=== PATIENT | female | born 1970 | race African-American/Black ===

== ENCOUNTER 2016-08-21 07:55 | Inpatient (IN) | payer OTHER ==
[2016-08-20 14:05] VITALS: BMI 30.3
[~2016-08-21] VITALS: Ht 165.1 cm; Wt 79.0 kg
[2016-08-21] VITALS (23 sets, daily range): BP systolic 109–139; BP diastolic 64–88; PULSE 0–94; RESP 12–54; Ht 165.1 cm; Wt 79.0 kg
[2016-08-21] MEDS ORDERED: CEFAZOLIN 1 GM/50 ML (PMX) 50 ML IVPB ONE (08:30)
[2016-08-21] MEDS ORDERED: SOD CHLORIDE 0.9% 1,000 ML IV SCH (08:30)
[2016-08-21] MEDS ORDERED: THROMBIN 5000 UNIT VIAL ONE (09:47)
[2016-08-21] MEDS ORDERED: HYDROmorphONE 2 MG/ML SYG ONE (10:49)
[2016-08-21] MEDS ORDERED: MIDAZOLAM 1 MG/ML 2 ML INJ ONE (10:49)
[2016-08-21] MEDS ORDERED: ROCURONIUM 50 MG INJ ONE (10:49)
[2016-08-21] MEDS ORDERED: METOCLOPRAMIDE 10 MG INJ ONE (10:49)
[2016-08-21] MEDS ORDERED: PROPOFOL 20 ML ONE (10:49)
[2016-08-21] MEDS ORDERED: CEFAZOLIN 1 GM INJ ONE (10:50)
[2016-08-21] MEDS ORDERED: DEXAMETHASONE 4 MG/ML 1 ML INJ ONE (11:29)
[2016-08-21] MEDS ORDERED: NEOSTIGMINE 3 MG/3 ML SYRINGE ONE (12:10)
[2016-08-21] MEDS ORDERED: GLYCOPYRROLATE 0.4 MG INJ ONE (12:10)
[2016-08-21] MEDS ORDERED: ONDANSETRON 4 MG INJ IV PRN ×2 (12:30→13:00)
[2016-08-21] MEDS ORDERED: HYDROmorphONE (0.2 MG/ML) 10ML SYG IV PRN ×3 (13:00)
[2016-08-21] MEDS ORDERED: DIPHENHYDRAMINE 50 MG INJ IV PRN (13:00)
[2016-08-21] MEDS ORDERED: MIDAZOLAM 1 MG/ML 2 ML INJ IV PRN (13:00)
[2016-08-21] MEDS ORDERED: OXYCODONE/ACETAMINOPHEN (5/325) TAB PO PRN ×2 (13:00)
[2016-08-21] MEDS ORDERED: MEPERIDINE 25 MG INJ IV PRN (13:00)
[2016-08-21] MEDS ORDERED: METOCLOPRAMIDE 10 MG INJ IV PRN (13:00)
--- NOTE | 2016-08-21 13:05 | OPR ---
DATE OF OPERATION: 08/21/2016 PREOPERATIVE DIAGNOSIS: Left thyroid enlargement, rule out intrathyroidal left parathyroid adenoma. POSTOPERATIVE DIAGNOSIS: Left thyroid enlargement, rule out intrathyroidal left parathyroid adenoma . OPERATION PERFORMED: Left thyroid lobectomy. ANESTHESIA: General. ANESTHESIOLOGIST: Dr. Momin SURGEON: Arturo Christine MD PUBLIC HEALTH NUTRITIONIST: Faustino Ford MD INDICATIONS FOR PROCEDURE: The patient is a 46-year-old female who presented with a left thyroid ma ss and an elevated parathormone level of 191. She was seen by attending ict business analyst, Dr. Dieudonne lombardi, and although the scan indicated probable intrathyroidal parathyroid adenoma, a neoplasm could als o not be ruled out. Therefore, the recommendation from Dr. Bro was for left thyroid lobectomy. The patient consented and was scheduled for surgery. DESCRIPTION OF PROCEDURE: The patient was brought to the operating theater, placed under general en dotracheal tube anesthesia. The abdomen and neck were placed in the extended position and the neck was prepped and draped in the usual sterile fashion. A planned incision was made approximately 2 cm above the clavicle and extending approximately 4 cm on either side of midline. Subcutaneous tissue was dissected with cautery down through the platysmal muscle. Subplatysmal flaps were developed fi rst superiorly using cautery and some blunt dissection and then inferiorly. The median raphe was in cised longitudinally. The strap muscles were meticulously dissected off of enlarged left thyroid lo be. The lobe was mobilized and brought towards midline. The inferior pole was sequentially isolate d and then transected with the LigaSure device as was the superior pole. There was no definite evid ence of an extracellular thyroidal adenoma. What appeared to be the left lower pole parathyroid gla nd was identified and did not appear to look particularly abnormal. At this point, with the entire left lobe mobilized, the ligament of Watson was transected with the LigaSure device. Specimen was or iented and sent for permanent pathologic analysis. The wound was irrigated. There was no evidence of bleeding. Dr. Christine made the decision not to place a drain. The median raphe was then reapproxi mated with multiple 4-0 Vicryl sutures in interrupted fashion. The platysmas muscle was also reappr oximated with multiple 4-0 sutures in interrupted fashion bilaterally and the final skin approximati on took place with 4-0 Monocryl sutures in subcuticular fashion and Dermabond was applied. The richard ent tolerated procedure well. Estimated blood loss was 20 mL. There were no complications and the patient was transported in stable condition to the recovery room. Dictated By: ARTURO DHILLON/LEE Conf#: [id number] DID#: [id number]
[2016-08-21] MEDS: D5W-0.45 NACL + KCL 20 MEQ 1,000 ML IV SCH ×3 (15:21→23:33)
[2016-08-21] MEDS: HYDROmorphONE 1 MG/ML SYG IV PRN ×4 (15:25→23:27)
[2016-08-21] MEDS: PANTOPRAZOLE 40 MG INJ IV SCH (17:41)
--- NOTE | 2016-08-21 18:31 | HP ---
DATE OF ADMISSION: 08/21/2016 CHIEF COMPLAINT AND HISTORY OF PRESENT ILLNESS: The patient is a 46-year-old female who is being se en by Dr. Elias as an outpatient. The patient is being seen by Dr. Elias for left parathyroid a denoma within the left lobe of thyroid. Rule out malignancy. The patient was brought into hospital and underwent left thyroid lobectomy. Patient did have postoperative pain and is being admitted fo r further evaluation and management. The patient denied any chest pain or shortness of breath. No reported fever or chills. No recent headache, dizziness, syncope. No history of dysuria or hematur ia. No history of vomiting or diarrhea. Patient has significant vitiligo lesions. The rest of the review of systems is unremarkable. PAST SURGICAL HISTORY: Patient is status post hysterectomy. ALLERGIES: PATIENT IS ALLERGIC TO NORCO AND VICODIN, BUT PATIENT STATES THAT SHE CAN TAKE PERCOCET. FAMILY HISTORY: The patient's maternal uncle of lung cancer. He was a nonsmoker. SOCIAL HISTORY: No smoking, no alcohol. PHYSICAL EXAMINATION: GENERAL: The patient is conscious, awake, alert. VITAL SIGNS: Temperature 97.6, pulse 92, respiration 18, blood pressure 129/64, O2 saturation 97% o n 2 liters nasal cannula. HEENT: Atraumatic, normocephalic. Conjunctivae and lids normal. Nose and ears normal. Oropharynx examination was deferred due to recent surgery. NECK: No active bleeding, ecchymosis or swelling. CHEST: Fairly clear. CARDIOVASCULAR: S1, S2 normal. No murmur. ABDOMEN: Soft, nondistended, nontender. Bowel sounds present. EXTREMITIES: No leg edema. NEUROLOGIC: The patient is awake, alert, fairly oriented with no gross focal deficit. LABORATORY DATA: Sodium 140, potassium 4.4, BUN 10, creatinine 0.7, glucose 93, calcium 10.1, intac t parathyroid hormone was 191 prior to surgery. Coagulation profile normal. WBC 5.3, hemoglobin 13 .2, platelets 307. IMPRESSION: 1. Left parathyroid adenoma within the left lobe. Rule out malignancy. Status post left thyroid lo bectomy. 2. Vitiligo. PLAN: The patient admitted on medical floor. Patient was started on clear liquid diet, which will be advanced as tolerated. Patient will be given IV fluid, IV Dilaudid and p.o. Percocet for pain co ntrol. We will use sequential compression devices for deep venous thrombosis prophylaxis. We will monitor electrolytes including calcium. Further recommendations will depend on the patient's hospit al course. Dictated By: LATASHA CHINO/LEE Conf#: [id number] DID#: [id number]
[2016-08-22 01:00] VITALS: BP 109/79; PULSE 78; RESP 18
[2016-08-22] MEDS: HYDROmorphONE 1 MG/ML SYG IV PRN ×3 (02:29→08:33)
[2016-08-22 05:00] VITALS: BP 118/80; PULSE 88; RESP 18
[2016-08-22 05:55] LABS: ADD SCAN DIFF NO
[2016-08-22 06:04] LABS: BASOPHILS % 0.1 % (0.0-2.0); HEMATOCRIT 35.3 % (37.0-47.0); HEMOGLOBIN 11.7 g/dl (12.0-16.0); LYMPHOCYTES # 1.2 10^3/ul (0.8-2.9); LYMPHOCYTES % 8.4 % (15.0-51.0); MEAN CORPUSCULAR HGB CONC 33.1 g/dl (32.0-37.0); MEAN CORPUSCULAR VOLUME 81.5 fl (82.0-101.0); MEAN PLATELET VOLUME 10.9 fl (7.4-10.4); MONOCYTE # 1.3 10^3/ul (0.3-0.9); MONOCYTES % 9.1 % (0.0-11.0); NEUTROPHIL # 11.7 10^3/ul (1.6-7.5); PLATELET COUNT 281 10^3/UL (140-415); RED BLOOD COUNT 4.33 10^6/ul (4.20-5.40); RED CELL DISTRIBUTION WIDTH 16.3 % (11.5-14.5); WHITE BLOOD COUNT 14.3 10^3/ul (4.8-10.8)
[2016-08-22] MEDS: PANTOPRAZOLE 40 MG INJ IV SCH (06:11)
[2016-08-22 06:16] LABS: CALCIUM 9.4 mg/dl (8.4-10.2); CREATININE 0.67 mg/dl (0.44-1.00); POTASSIUM 4.2 mmol/L (3.5-5.1)
[2016-08-22 07:58] VITALS: BP 109/64; RESP 22
[2016-08-22] MEDS: D5W-0.45 NACL + KCL 20 MEQ 1,000 ML IV SCH ×2 (08:34→17:39)
--- NOTE | 2016-08-22 12:24 | PN ---
DATE: 08/22/2016 Postop day #1 status post left thyroid lobectomy. SUBJECTIVE: Complains of pain, has not had any food yet. She also states that she cannot sleep we ll. OBJECTIVE: VITAL SIGNS: Temperature 98.5, heart rate 82, respirations 22, blood pressure 109/64, saturation 98 % on room air. LABORATORIES: Calcium 9.3, then 9.6 title abstractor and then at 5:00 a.m. 9.4. Sodium, potassium nor mal. WBC 14,300 with 82% neutrophils, hemoglobin 11.7, hematocrit 35.3. Platelets 281. EXAMINATION: There is no swelling in the neck area. The wound looks clean. ASSESSMENT AND PLAN: 1. Status post left thyroid lobectomy for possible intrathyroidal parathyroid adenoma or any other malignancy. 2. Patient is relatively stable. Hemoglobin is stable. Calcium is stable. WBC has increased with shift to the left. Patient has not experienced swallowing yet. PLAN: We will start patient on clear liquids and advance to full liquids tonight. Repeat CBC and c alcium tomorrow morning. If everything is okay, we will discharge her tomorrow. Dictated By: LEE SHEPHERD MD PS/NTS Conf#: [id number] DID#: [id number]
[2016-08-22] MEDS ORDERED: HYDROmorphONE 1 MG/ML SYG IV PRN (13:30)
--- NOTE | 2016-08-22 17:20 | PN ---
Date/Time of Note Date/Time of Note DATE: 08/22/16 TIME: 17:17 Assessment/Plan VTE Prophylaxis VTE Prophylaxis Intervention: SCD's Lines/Catheters IV Catheter Type (from Nrs): Peripheral IV Assessment/Plan Assessment/Plan 1. Left parathyroid adenoma within the left lobe. Rule out malignancy. Status post left thyroid lobectomy. Advance diet per surgery. CBC tomorrow. 2. Vitiligo. Further recommendations based on clinical course. Plan of care discussed with Dr. Wells. Subjective 24 Hr Interval Summary Free Text/Dictation Patient's complains of postoperative pain, controlled with current medication, able to tolerate clear liquid diet well, a voice is intact however softer than patient usual voice. Exam/Review of Systems Vital Signs Vitals Vital Signs Date Time Temp Pulse Resp B/P Pulse Ox O2 Delivery O2 Flow Rate FiO2 08/22/16 07:58 98.5 82 22 109/64 98 08/22/16 05:00 Nasal Cannula 08/21/16 20:00 2.0 Intake and Output 08/21/16 08/21/16 08/22/16 15:00 23:00 07:00 Intake Total 250 ml 1500 ml Output Total 20 ml 400 ml 1200 ml Balance -20 ml -150 ml 300 ml Exam Constitutional: alert Psych: no complaints Head: normocephalic Eyes: nl conjunctiva ENMT: nl external ears & nose Neck: other (Base of the neck surgical incision is intact), supple Respiratory: clear to auscultation Cardiovascular: nl pulses, regular rate and rhythm Gastrointestinal: non-tender, soft Musculoskeletal: nl extremities to inspection Extremities: normal pulses Neurological: FIELD SCOUT II-XII intact Results Result Diagram: 08/22/16 0535 08/22/16 0535 Results 24 hrs Laboratory Tests Test 08/21/16 17:35 08/22/16 00:35 08/22/16 05:35 Calcium Level 9.3 9.6 9.4 White Blood Count 14.3 H Red Blood Count 4.33 Hemoglobin 11.7 L Hematocrit 35.3 L Mean Corpuscular Volume 81.5 L Mean Corpuscular Hemoglobin 27.0 L Mean Corpuscular Hemoglobin Concent 33.1 Red Cell Distribution Width 16.3 H Platelet Count 281 Mean Platelet Volume 10.9 H Neutrophils % 82.0 H Lymphocytes % 8.4 L Monocytes % 9.1 Eosinophils % 0.0 Basophils % 0.1 Nucleated Red Blood Cells % 0.0 Neutrophils # 11.7 H Lymphocytes # 1.2 Monocytes # 1.3 H Eosinophils # 0.0 Basophils # 0.0 Nucleated Red Blood Cells # 0.0 Sodium Level 136 Potassium Level 4.2 Chloride Level 106 Carbon Dioxide Level 25 Anion Gap 9 Blood Urea Nitrogen 8 Creatinine 0.67 Glucose Level 115 Medications Medications Current Medications Ondansetron HCl 4 mg 4 mg Q6H PRN IV NAUSEA AND/OR VOMITING; Start 08/21/16 at 12:30 Potassium Chloride/Dextrose/ Sod Cl (D5-1/2ns + KCl 20 Meq) 1,000 ml @ 125 mls/ hr Q8H IV Last administered on 08/22/16 08:34; Admin Dose 125 MLS/HR; Start at 12:22 Pantoprazole (Protonix Iv) 40 mg DAILY@06 IV Last administered on 08/22/16 06: 11; Admin Dose 40 MG; Start 08/21/16 at 17:30 Oxycodone/ Acetaminophen (Percocet (5/ 325)) 1 tab Q4H PRN PO PAIN; Start 08/22 at 12:00 Hydromorphone HCl (Dilaudid) 0.5 mg Q4H PRN IV PAIN Last administered on 13:35; Admin Dose 0.5 MG; Start 08/22/16 at 13:30 SUNI LIM Aug 22, 2016 17:20
[2016-08-22] MEDS: OXYCODONE/ACETAMINOPHEN (5/325) TAB PO PRN (18:47)
[2016-08-22 20:38] VITALS: BP 123/72; RESP 20
[2016-08-23] MEDS: D5W-0.45 NACL + KCL 20 MEQ 1,000 ML IV SCH ×3 (01:01→12:22)
[2016-08-23] MEDS: OXYCODONE/ACETAMINOPHEN (5/325) TAB PO PRN ×2 (01:02→06:23)
[2016-08-23 06:17] LABS: ADD SCAN DIFF NO
[2016-08-23] MEDS: PANTOPRAZOLE 40 MG INJ IV SCH (06:23)
[2016-08-23 06:40] LABS: BASOPHILS % 0.6 % (0.0-2.0); EOSINOPHILS # 0.1 10^3/ul (0.0-0.5); EOSINOPHILS % 1.4 % (0.0-7.0); HEMATOCRIT 33.2 % (37.0-47.0); HEMOGLOBIN 11.4 g/dl (12.0-16.0); LYMPHOCYTES # 2.1 10^3/ul (0.8-2.9); LYMPHOCYTES % 34.2 % (15.0-51.0); MEAN CORPUSCULAR HEMOGLOBIN 28.2 pg (29.0-33.0); MEAN CORPUSCULAR HGB CONC 34.3 g/dl (32.0-37.0); MEAN CORPUSCULAR VOLUME 82.2 fl (82.0-101.0); MEAN PLATELET VOLUME 11.1 fl (7.4-10.4); MONOCYTE # 0.7 10^3/ul (0.3-0.9); MONOCYTES % 11.9 % (0.0-11.0); NEUTROPHIL # 3.2 10^3/ul (1.6-7.5); NEUTROPHILS % 51.7 % (39.0-77.0); PLATELET COUNT 267 10^3/UL (140-415); RED BLOOD COUNT 4.04 10^6/ul (4.20-5.40); RED CELL DISTRIBUTION WIDTH 16.5 % (11.5-14.5); WHITE BLOOD COUNT 6.2 10^3/ul (4.8-10.8)
[2016-08-23 07:41] VITALS: BP 119/77; RESP 18
--- NOTE | 2016-08-23 10:44 | DS ---
Date/Time of Note Date/Time of Note DATE: 08/23/16 TIME: 10:43 Discharge Summary Admission/Discharge Info Admit Date/Time Aug 22, 2016 at 17:21 Discharge Date/Time 08/23/16 Final Diagnosis 1) left parathyroid adenoma Consults surgery Hospital Course Patient came in for surgical removal of left parathyroid adenoma. Patient underwent procedure and tolerated it well. Once stable per surgery, she was sent home. 1. Left parathyroid adenoma within the left lobe. Rule out malignancy. Status post left thyroid lobectomy. Advance diet per surgery. CBC tomorrow. 2. Vitiligo. Home Meds No Active Prescriptions or Reported Meds Pending Labs Laboratory Tests Test 08/23/16 05:55 White Blood Count 6.210^3/ul (4.8-10.8) Red Blood Count 4.0410^6/ul (4.20-5.40) Hemoglobin 11.4g/dl (12.0-16.0) Hematocrit 33.2% (37.0-47.0) Mean Corpuscular Volume 82.2fl (82.0-101.0) Mean Corpuscular Hemoglobin 28.2pg (29.0-33.0) Mean Corpuscular Hemoglobin Concent 34.3g/dl (32.0-37.0) Red Cell Distribution Width 16.5% (11.5-14.5) Platelet Count 05419^3/UL (140-415) Mean Platelet Volume 11.1fl (7.4-10.4) Neutrophils % 51.7% (39.0-77.0) Lymphocytes % 34.2% (15.0-51.0) Monocytes % 11.9% (0.0-11.0) Eosinophils % 1.4% (0.0-7.0) Basophils % 0.6% (0.0-2.0) Nucleated Red Blood Cells % 0.0/100WBC (0.0-0.0) Neutrophils # 3.210^3/ul (1.6-7.5) Lymphocytes # 2.110^3/ul (0.8-2.9) Monocytes # 0.710^3/ul (0.3-0.9) Eosinophils # 0.110^3/ul (0.0-0.5) Basophils # 0.010^3/ul (0.0-0.1) Nucleated Red Blood Cells # 0.010^3/ul (0.0-0.0) Calcium Level 9.4mg/dl (8.4-10.2) JOSE ALBERTO JONES Aug 23, 2016 10:44
--- NOTE | 2016-08-23 12:26 | PN ---
DATE: 08/23/2016 Status post left thyroid lobectomy, postop day #2. SUBJECTIVE: Feels much better. OBJECTIVE VITAL SIGNS: Temperature 98.0, pulse 70 heart rate, 18 respirations, blood pressure 119/77, saturat ion 96% on room air. LAB: Calcium 9.4 and stable. WBC dropped to 6.2, normal. Normal differential. Hemoglobin is stable at 9.4. The wound looks clean. The patient tolerated full liquid diet. Voice has improved and is much bett er. PLAN: The patient can be discharged home after lunch. Follow up by Dr. Renee in his office. Dictated By: LEE SHEPHERD MD PS/LEE Conf#: [id number] DID#: [id number]
== END 2016-08-23 16:55 | disposition home or self-care (01) | DRG 627 ==
LOC: SDS 07:55 → MS2 12:24 → SDS 12:24 → INTOOBSV 12:24 → MS2 14:15 → OBSVTOIN 08-22 17:21
PROVIDERS: ADMIT Internal Medicine; ATTEND Internal Medicine
PROC: 0GBG0ZZ Excision of Left Thyroid Gland Lobe, Open Approach (ICD-10-PCS; principal; 2016-08-21 10:30)
DX: D35.1 Benign neoplasm of parathyroid gland (principal); L80 Vitiligo
CPT/HCPCS: 80048; 82310; 85025; 88309; 99217; C9113; G0378; J0690; J1100; J1170; J2175; J2250; J2405; J2710; J2765; J3480

== ENCOUNTER → 2016-11-07 | Outpatient (CLI) | payer OTHER ==
--- NOTE | 2016-11-07 15:48 | RADRPT ---
PROCEDURE: Nuclear medicine parathyroid scan CLINICAL INDICATION: Hyperparathyroidism. Elevated PTH. History of previous left parathyroid adeno ma. Previous left thyroid lobectomy. TECHNIQUE: 20 mCi of technetium 99m sestamibi was administered to the patient. Planar imaging of the thyroid bed and neck region was performed in the anterior and oblique views. Imaging was obtain ed at 30 minutes, 2 hours, and 4 hours post injection. Images were reviewed on the high resolution PACS workstation. COMPARISON: None available FINDINGS: Normal physiologic activity is seen throughout the glands of the neck, as expected. Increased activi ty within the right lobe of the thyroid gland is seen. Left lobe of the thyroid gland is absent. On the delayed images, there is appropriate washout of activity from the thyroid gland. No persistent activity is seen within the parathyroid bed to indicate parathyroid adenoma. IMPRESSION: 1. Negative parathyroid scan. 2. No parathyroid adenoma. RPTAT: HMJB .Vidal Steven MD, MD Date Time Electronically viewed and signed by .Vidal Steven MD, on 11/07/2016 15:48 .B/
== END | disposition home or self-care (01) ==
LOC: NUC 11:17
PROVIDERS: ATTEND Surgery Surgical Oncology
DX: E20.9 Hypoparathyroidism, unspecified (principal)
CPT/HCPCS: 78070; A9500

== ENCOUNTER 2017-12-14 06:26 | Inpatient (IN) | END 2017-12-18 18:05 | disposition home or self-care (01) | DRG 627 ==